=== PATIENT | male | born 1990 ===

== ENCOUNTER 2018-04-12 00:41 | Emergency (ER) | payer BC ==
--- NOTE | 2018-04-12 00:44 | ER Report ---
History and Physical Time Seen By MD: 00:44 HPI/ROS CHIEF COMPLAINT: Left hand laceration HISTORY OF PRESENT ILLNESS: 27-year-old male presents ambulatory to the ER with a Y-shaped laceration in the palm of his left hand extending partially up the ulnar side of the long finger. Patient states his last tetanus shot was a couple years ago. Patient notes no numbness in his fingers. Patient states the laceration occurred just several hours prior to his presentation here. Allergies: Coded Allergies: No Known Drug Allergies (Unverified , 04/12/18) Home Meds Reported Medications Dicyclomine Hcl (DICYCLOMINE HCL) 10 Mg Capsule, 10 MG PO QID, CAPSULE 04/12/18 Reviewed Nurses Notes: Yes Old Medical Records Reviewed: Yes Constitutional Vital Sign - Last 24 Hours 04/12/18 00:45 Temp 98.3 Pulse 101 Resp 16 B/P (MAP) 133/96 Pulse Ox 94 O2 Delivery Room Air Physical Exam General appearance: Alert no distress. Respiratory: Chest is non tender, lungs are clear to auscultation. Cardiac: Regular rate and rhythm Extremities: Examination of the left hand reveals a Y-shaped laceration extending from nearly the mid palmar crease to the base of the long finger. The laceration extends up the ulnar side of the long finger approximately 1 cm total length of the laceration is approximate 4 cm distal neurovascular functions intact in all digits DIFFERENTIAL DIAGNOSIS: After history and physical exam differential diagnosis was considered for hand laceration, tendon laceration, digital nerve injury, digital artery injury, foreign body, Medical Decision Making ED Course/Re-evaluation ED Course Procedure: Laceration repair. Verbal consent was obtained from the patient. The 4.0 cm laceration on the left palm at the base of the long finger was anesthetized in the usual fashion. The wound was scrubbed, draped and explored to its base with a gloved finger. There were no deep structures involved. No tendon injury was identified. The wound was repaired with 4-0 Prolene 8 sutures. The wound repair was simple. The procedure was performed by myself. Wound care was discussed, suture removal will be in 10 days. Decision to Disposition Date: April 12, 2018 Decision to Disposition Time: 00:53 Depart Departure Latest Vital Signs Vital Signs Date Time Temp Pulse Resp B/P (MAP) Pulse Ox O2 Delivery O2 Flow Rate FiO2 04/12/18 00:45 98.3 101 16 133/96 94 Room Air Impression: Primary Impression: Laceration of left hand Condition: Improved Disposition: HOME OR SELF-CARE Referrals: JOSE A ZARATE (PCP) Patient Instructions: Hand Laceration Additional Instructions: Take ibuprofen 200 mg 3 tablets 3 times a day with food Perform daily dressing changes Return for suture removal in 10 days Problem Qualifiers Primary Impression: Laceration of left hand Encounter type: initial encounter Foreign body presence: without foreign body Qualified Codes: S61.412A - Laceration without foreign body of left hand , initial encounter HERNESTO SCHULTE DO April 12, 2018 00:44
[2018-04-12 00:45] VITALS: BP 133/96
[2018-04-12] MEDS ORDERED: DICY10CA11 PO (00:47)
== END 2018-04-12 01:31 | disposition home or self-care (01) ==
LOC: ER 00:44
DX: S61.412A Laceration without foreign body of left hand, initial encounter (principal)
CPT/HCPCS: 99283